=== PATIENT | male | born 1955 | race Hispanic/Latino ===

== ENCOUNTER 2022-11-15 09:53 | Outpatient (CLI) | payer OTHER ==
[~2022-11-15 09:53] MED LIST: Iopamidol 370 76% 100 ML VIAL ONE
== END 2022-11-15 09:54 | disposition home or self-care (01) ==
LOC: CSHCT 09:53
PROVIDERS: ATTEND Family Medicine
DX: R91.1 Solitary pulmonary nodule (principal); J98.4 Other disorders of lung; R91.8 Other nonspecific abnormal finding of lung field; R59.0 Localized enlarged lymph nodes
CPT/HCPCS: 71260; 82565

== ENCOUNTER 2025-05-02 09:59 | Outpatient (CLI) | payer MEDICARE | END 2025-05-02 10:00 | disposition home or self-care (01) | LOC: CSHSLEEP 09:59 | PROVIDERS: ATTEND Family Medicine | DX: G47.33 Obstructive sleep apnea (adult) (pediatric) (principal) | CPT/HCPCS: 95811 ==